=== PATIENT | male | born 1935 | race Caucasian/White ===

== ENCOUNTER 2017-01-16 00:40 | Inpatient (IN) | payer MEDICARE, OTHER ==
[2017-01-16] VITALS (8 sets, daily range): BP systolic 111–153; BP diastolic 55–81
[~2017-01-16] VITALS: Ht 182.9 cm; Wt 73.3 kg
[2017-01-16] MEDS ORDERED: IPRATROPIUM BROM 0.5 MG/2.5ML INH SOL NEB ONE (01:00)
[2017-01-16] MEDS ORDERED: methylPREDNISolone SOD SUCC 125 MG/2 ML VL IV ONE (01:00)
[2017-01-16] MEDS ORDERED: ALBUTEROL SULF 2.5 MG/0.5ML(0.5%) NEB SOLN NEB ONE (01:00)
[2017-01-16 01:28] LABS: Hematocrit 44.4 % (41.0-53.0); Hemoglobin 14.5 g/dL (13.5-17.5); Mean Corpuscular Hemoglobin 27.6 pg (28.0-32.0); Mean Corpuscular Hgb Conc. 32.7 g/dL (32.0-36.0); Mean Corpuscular Volume 84.4 fL (80.0-100.0); Mean Platelet Volume 8.2 fL (7.4-10.4); Platelet Count (auto) 208 10^3/uL (140-450); Red Cell Distribution Width 14.7 % (11.6-16.0); SUSPECT VIEW TRANSMISSION; White Blood Cell 28.4 10^3/uL (4.4-10.8)
[2017-01-16 01:28] LABS: Urine Bilirubin Negative (Negative); Urine Color Yellow (Yellow); Urine Ketone Negative (Negative); Urine Nitrite Negative (Negative); Urine RBC 363 /hpf (0 - 3); Urine Urobilinogen Normal (Negative); Urine pH 6.5 (5.0-8.0)
[2017-01-16 01:30] LABS: Urine Blood 2+ /uL (Negative); Urine Glucose 1+ mg/dL (Normal)
[2017-01-16 01:33] LABS: Metamyelocytes % 0; Myelocytes % 0; Promyelocytes % 0; Reactive Lymphocytes 0
[2017-01-16 01:34] LABS: Albumin 2.9 g/dL (3.4-5.0); BUN/Creatinine Ratio 46.1; Calcium 8.3 mg/dL (8.5-10.1); Magnesium 2.3 mg/dL (1.6-2.6); Potassium 4.8 mmol/L (3.5-5.1)
[2017-01-16 01:41] LABS: INR 1.01 (0.9-1.15); Partial Thromboplastin Time 20.3 sec (22.64-33.71); Prothrombin Time 10.9 sec (9.37-12.3)
[2017-01-16 02:10] LABS: Hypersegmented Neutrophils Present; Platelet Estimate Adequate
[2017-01-16 02:23] LABS: B-Type Natriuretic Peptide 92.4 pg/mL (0-100); Temperature: 21.4 C (20.0-25.0)
[2017-01-16] MEDS ORDERED: SODIUM CHLORIDE 0.9% 1,000 ML IV ONE (03:00)
[2017-01-16] MEDS ORDERED: PIPERACILLIN-TAZO 4.5GM 100 ML IV ONE (03:00)
[2017-01-16] MEDS ORDERED: IOHEXOL 350 MG/ML 100ML IJ ONE (03:31)
[2017-01-16] MEDS ORDERED: NITROGLYCERIN 0.4 MG SL TAB SL PRN (06:30)
[2017-01-16] MEDS ORDERED: VANCOMYCIN PER PHARMACY 0 MG IV SCH (06:30)
[2017-01-16] MEDS ORDERED: ONDANSETRON HCL 4 MG/2 ML VIAL IV PRN (06:30)
[2017-01-16] MEDS ORDERED: ACETAMINOPHEN 325 MG TAB PO PRN (06:30)
[2017-01-16] MEDS ORDERED: MORPHINE SULF INJ 2 MG/ML SYRINGE 1ML IV PRN (06:30)
[2017-01-16] MEDS: SODIUM CHLORIDE 0.9% 1,000 ML IV SCH ×2 (06:34→23:00)
[2017-01-16] MEDS ORDERED: WARF4TAB33 PO (08:25)
[2017-01-16] MEDS ORDERED: ATOR20TA PO (08:25)
[2017-01-16] MEDS ORDERED: AMPI500C59 PO (08:25)
[2017-01-16] MEDS ORDERED: CYAN500L3 PO (08:25)
[2017-01-16] MEDS ORDERED: CEPH500C PO (08:25)
[2017-01-16] MEDS ORDERED: ALBUAER3 IN (08:25)
[2017-01-16] MEDS ORDERED: FOLI1TAB6 PO (08:25)
[2017-01-16] MEDS ORDERED: METO-169 PO (08:25)
[2017-01-16] MEDS ORDERED: AML5T PO (08:25)
[2017-01-16] MEDS ORDERED: FLUT250M2 INH (08:25)
[2017-01-16] MEDS ORDERED: LEVO500T3 PO (08:25)
[2017-01-16] MEDS ORDERED: LISI-646 PO (08:25)
[2017-01-16] MEDS ORDERED: ZOLP12.52 PO (08:25)
[2017-01-16 08:32] LABS: INR 1.06 (0.9-1.15); Partial Thromboplastin Time 25.7 sec (22.64-33.71); Prothrombin Time 11.4 sec (9.37-12.3)
[2017-01-16] MEDS: VANCOMYCIN 1,250 MG in D5W 5% 250 ML IV SCH ×2 (09:00→21:56)
[2017-01-16] MEDS: amLODIPine BESYLATE 5 MG TAB PO SCH (10:00)
[2017-01-16] MEDS: methylPREDNISolone SOD SUCC 125 MG/2 ML VL IV SCH ×2 (11:18→21:50)
[2017-01-16] MEDS: FAMOTIDINE 20 MG TAB PO SCH ×2 (11:18→21:49)
[2017-01-16] MEDS: METOPROLOL TARTRATE 50 MG TAB PO SCH (11:18)
[2017-01-16] MEDS: PIPERACILLIN-TAZOB 3.375GM 100 ML IV SCH ×2 (13:02→17:36)
[2017-01-16] MEDS ORDERED: WARFARIN SODIUM 2.5 MG TAB PO ONE (17:00)
[2017-01-16] MEDS: ATORVASTATIN 20 MG TAB PO SCH (21:49)
[2017-01-17] VITALS: BP 156/78
[2017-01-17] MEDS: PIPERACILLIN-TAZOB 3.375GM 100 ML IV SCH ×5 (00:36→23:38)
[2017-01-17] MEDS: MORPHINE SULF INJ 2 MG/ML SYRINGE 1ML IV PRN (03:27)
[2017-01-17 04:00] VITALS: BP 157/80
[2017-01-17 05:38] LABS: Hematocrit 35.9 % (41.0-53.0); Hemoglobin 11.9 g/dL (13.5-17.5); Mean Corpuscular Hemoglobin 27.6 pg (28.0-32.0); Mean Corpuscular Hgb Conc. 33.2 g/dL (32.0-36.0); Mean Corpuscular Volume 83.2 fL (80.0-100.0); Platelet Count (auto) 152 10^3/uL (140-450); Red Cell Distribution Width 14.7 % (11.6-16.0); SUSPECT VIEW TRANSMISSION; White Blood Cell 19.2 10^3/uL (4.4-10.8)
[2017-01-17 05:43] LABS: Metamyelocytes % 0; Myelocytes % 0; Promyelocytes % 0; Reactive Lymphocytes 0
[2017-01-17 05:47] LABS: Albumin 2.1 g/dL (3.4-5.0); BUN/Creatinine Ratio 35.1; Bilirubin, Total 1.5 mg/dL (0.2-1.0); Calcium 7.4 mg/dL (8.5-10.1); Potassium 4.6 mmol/L (3.5-5.1); Total Protein 4.9 g/dL (6.4-8.2)
[2017-01-17] MEDS: ALBUTEROL SULF 2.5 MG/0.5ML(0.5%) NEB SOLN NEB PRN ×2 (05:52→10:10)
[2017-01-17] MEDS: IPRATROPIUM BROM 0.5 MG/2.5ML INH SOL NEB PRN ×2 (05:53→10:10)
[2017-01-17 06:51] LABS: Hypersegmented Neutrophils Present; Platelet Estimate Adequate; RBC Morphology Normal
[2017-01-17 07:32] LABS: INR 1.28 (0.9-1.15); Partial Thromboplastin Time 27.3 sec (22.64-33.71); Prothrombin Time 13.7 sec (9.37-12.3)
[2017-01-17 07:53] VITALS: BP 140/87
[2017-01-17] MEDS: VANCOMYCIN 1,250 MG in D5W 5% 250 ML IV SCH ×2 (09:19→20:42)
[2017-01-17] MEDS: amLODIPine BESYLATE 5 MG TAB PO SCH (10:37)
[2017-01-17] MEDS: methylPREDNISolone SOD SUCC 125 MG/2 ML VL IV SCH ×3 (10:38→23:39)
[2017-01-17] MEDS: FAMOTIDINE 20 MG TAB PO SCH ×2 (10:38→22:07)
[2017-01-17] MEDS: METOPROLOL TARTRATE 50 MG TAB PO SCH (10:38)
[2017-01-17 12:00] VITALS: BP 145/81
[2017-01-17] MEDS: METOPROLOL SUCCINATE XL 50 MG TAB PO SCH (12:00)
[2017-01-17] MEDS: SODIUM CHLORIDE 0.9% 1,000 ML IV SCH (12:24)
[2017-01-17] MEDS: IPRATROPIUM BROM 0.5 MG/2.5ML INH SOL NEB SCH ×2 (14:20→21:55)
[2017-01-17] MEDS: ALBUTEROL SULF 2.5 MG/0.5ML(0.5%) NEB SOLN NEB SCH ×2 (14:21→19:31)
[2017-01-17 16:00] VITALS: BP 121/59
[2017-01-17] MEDS ORDERED: WARFARIN SODIUM 2.5 MG TAB PO ONE (17:00)
[2017-01-17 20:01] VITALS: BP 151/77
[2017-01-17] MEDS: HYDROcodone-ACET 5/325MG TAB PO PRN (20:42)
[2017-01-17] MEDS: ATORVASTATIN 20 MG TAB PO SCH (22:06)
[2017-01-18] MEDS: IPRATROPIUM BROM 0.5 MG/2.5ML INH SOL NEB SCH ×5 (00:29→23:55)
[2017-01-18] MEDS: ALBUTEROL SULF 2.5 MG/0.5ML(0.5%) NEB SOLN NEB SCH ×5 (00:29→23:55)
[2017-01-18 04:03] VITALS: BP 132/79
[2017-01-18] MEDS: PIPERACILLIN-TAZOB 3.375GM 100 ML IV SCH ×4 (05:30→23:51)
[2017-01-18] MEDS: methylPREDNISolone SOD SUCC 125 MG/2 ML VL IV SCH ×4 (05:30→23:51)
[2017-01-18 06:28] LABS: Hematocrit 39.5 % (41.0-53.0); Mean Corpuscular Hemoglobin 27.5 pg (28.0-32.0); Mean Corpuscular Volume 83.5 fL (80.0-100.0); Mean Platelet Volume 8.5 fL (7.4-10.4); Platelet Count (auto) 141 10^3/uL (140-450); Red Cell Distribution Width 14.5 % (11.6-16.0); SUSPECT VIEW TRANSMISSION; White Blood Cell 19.3 10^3/uL (4.4-10.8)
[2017-01-18 06:36] LABS: Metamyelocytes % 0; Myelocytes % 0; Promyelocytes % 0; Reactive Lymphocytes 0
[2017-01-18 06:46] LABS: Partial Thromboplastin Time 27.2 sec (22.64-33.71)
[2017-01-18 06:48] LABS: BUN/Creatinine Ratio 37.9; Calcium 7.6 mg/dL (8.5-10.1); INR 1.55 (0.9-1.15); Potassium 3.9 mmol/L (3.5-5.1); Prothrombin Time 16.7 sec (9.37-12.3)
[2017-01-18 08:00] VITALS: BP 148/79
[2017-01-18 08:43] LABS: Platelet Estimate Adequate; RBC Morphology Normal
[2017-01-18] MEDS: VANCOMYCIN 1,250 MG in D5W 5% 250 ML IV SCH (09:30)
[2017-01-18] MEDS: FAMOTIDINE 20 MG TAB PO SCH ×2 (09:50→21:50)
[2017-01-18] MEDS: amLODIPine BESYLATE 5 MG TAB PO SCH (09:51)
[2017-01-18] MEDS: METOPROLOL SUCCINATE XL 50 MG TAB PO SCH (09:51)
[2017-01-18 12:00] VITALS: BP 141/68
[2017-01-18] MEDS ORDERED: DEXTROSE (50%) 50ML SYRG IV PRN (12:00)
[2017-01-18] MEDS: SODIUM CHLORIDE 0.9% 1,000 ML IV SCH (12:12)
[2017-01-18 16:00] VITALS: BP 148/87
[2017-01-18] MEDS: VANCOMYCIN 1GM/250ML D5W 250 ML IV SCH (16:55)
[2017-01-18] MEDS: InsuLIN REG 1unit/0.01ml Soln (100units/ml) SC SCH ×2 (16:59→21:53)
[2017-01-18] MEDS ORDERED: WARFARIN SODIUM 5 MG TAB PO ONE (17:00)
[2017-01-18] MEDS: ACCU-CHEK COMFORT CURVE STRIP VI SCH ×2 (17:03→21:51)
[2017-01-18 20:00] VITALS: BP 111/79
[2017-01-18] MEDS: ATORVASTATIN 20 MG TAB PO SCH (21:50)
[2017-01-18] MEDS: HYDROcodone-ACET 5/325MG TAB PO PRN (22:00)
[2017-01-18 23:52] VITALS: BP 121/72
[2017-01-19] MEDS: VANCOMYCIN 1GM/250ML D5W 250 ML IV SCH ×2 (01:56→09:34)
[2017-01-19 04:00] VITALS: BP 142/63
[2017-01-19 05:36] LABS: Basophils # (auto) 0 uL; Eosinophils # (auto) 0 uL; Hematocrit 41.2 % (41.0-53.0); Hemoglobin 13.6 g/dL (13.5-17.5); Lymphocytes # (auto) 0.4 uL; Lymphocytes % (auto) 1.5 % (10.0-50.0); Mean Corpuscular Hemoglobin 27.7 pg (28.0-32.0); Mean Corpuscular Volume 83.9 fL (80.0-100.0); Monocytes # (auto) 0.1 uL; Monocytes % (auto) 0.3 % (0.0-12.0); Neutrophils # (auto) 22.9 uL; Neutrophils % (auto) 98.2 % (37.0-80.0); Platelet Count (auto) 160 10^3/uL (140-450); Red Cell Distribution Width 14.8 % (11.6-16.0); SUSPECT VIEW TRANSMISSION; White Blood Cell 23.4 10^3/uL (4.4-10.8)
[2017-01-19] MEDS: PIPERACILLIN-TAZOB 3.375GM 100 ML IV SCH ×4 (06:08→23:25)
[2017-01-19] MEDS: methylPREDNISolone SOD SUCC 125 MG/2 ML VL IV SCH ×4 (06:08→23:26)
[2017-01-19] MEDS: IPRATROPIUM BROM 0.5 MG/2.5ML INH SOL NEB SCH ×3 (06:10→18:27)
[2017-01-19] MEDS: ALBUTEROL SULF 2.5 MG/0.5ML(0.5%) NEB SOLN NEB SCH ×3 (06:10→18:27)
[2017-01-19 06:11] LABS: BUN/Creatinine Ratio 32.5; Potassium 4.5 mmol/L (3.5-5.1)
[2017-01-19 06:23] LABS: INR 2.79 (0.9-1.15); Prothrombin Time 30.1 sec (9.37-12.3)
[2017-01-19] MEDS: ACCU-CHEK COMFORT CURVE STRIP VI SCH ×4 (06:26→21:20)
[2017-01-19] MEDS: InsuLIN REG 1unit/0.01ml Soln (100units/ml) SC SCH ×4 (06:28→22:19)
[2017-01-19 07:54] VITALS: BP 129/72
[2017-01-19] MEDS: FAMOTIDINE 20 MG TAB PO SCH ×2 (09:35→21:20)
[2017-01-19] MEDS: amLODIPine BESYLATE 5 MG TAB PO SCH (09:35)
[2017-01-19] MEDS: METOPROLOL SUCCINATE XL 50 MG TAB PO SCH (09:35)
[2017-01-19 09:51] VITALS: BP 140/74
[2017-01-19 12:00] VITALS: BP 138/78
[2017-01-19] MEDS: SODIUM CHLORIDE 0.9% 1,000 ML IV SCH (12:01)
[2017-01-19] MEDS: HYDROcodone-ACET 5/325MG TAB PO PRN ×2 (13:08→19:03)
[2017-01-19 16:01] VITALS: BP 128/63
[2017-01-19 20:00] VITALS: BP 122/55
[2017-01-19] MEDS: ATORVASTATIN 20 MG TAB PO SCH (21:20)
[2017-01-19] MEDS: VANCOMYCIN 1,250 MG in D5W 5% 250 ML IV SCH (22:01)
[2017-01-20] VITALS: BP 136/74
[2017-01-20 04:00] VITALS: BP 137/84
[2017-01-20] MEDS: PIPERACILLIN-TAZOB 3.375GM 100 ML IV SCH ×3 (05:22→18:00)
[2017-01-20] MEDS: methylPREDNISolone SOD SUCC 125 MG/2 ML VL IV SCH ×3 (05:23→18:20)
[2017-01-20] MEDS: ALBUTEROL SULF 2.5 MG/0.5ML(0.5%) NEB SOLN NEB SCH ×3 (05:41→11:26)
[2017-01-20] MEDS: IPRATROPIUM BROM 0.5 MG/2.5ML INH SOL NEB SCH ×3 (05:41→11:26)
[2017-01-20] MEDS: ACCU-CHEK COMFORT CURVE STRIP VI SCH ×3 (06:01→17:23)
[2017-01-20 06:06] LABS: Hematocrit 40.6 % (41.0-53.0); Hemoglobin 13.8 g/dL (13.5-17.5); Mean Corpuscular Hemoglobin 28.7 pg (28.0-32.0); Mean Corpuscular Hgb Conc. 34.1 g/dL (32.0-36.0); Mean Corpuscular Volume 84.3 fL (80.0-100.0); Mean Platelet Volume 8.2 fL (7.4-10.4); Platelet Count (auto) 155 10^3/uL (140-450); Red Cell Distribution Width 14.1 % (11.6-16.0); SUSPECT VIEW TRANSMISSION; White Blood Cell 23.2 10^3/uL (4.4-10.8)
[2017-01-20 06:16] LABS: Metamyelocytes % 0; Myelocytes % 0; Promyelocytes % 0; Reactive Lymphocytes 0
[2017-01-20] MEDS: InsuLIN REG 1unit/0.01ml Soln (100units/ml) SC SCH ×3 (06:19→18:20)
[2017-01-20 06:27] LABS: Potassium 3.5 mmol/L (3.5-5.1)
[2017-01-20 06:33] LABS: Partial Thromboplastin Time 32.5 sec (22.64-33.71)
[2017-01-20 06:38] LABS: Calcium 7.6 mg/dL (8.5-10.1); Magnesium 2.3 mg/dL (1.6-2.6); Phosphorus 1.7 mg/dL (2.5-4.90)
[2017-01-20 06:43] LABS: INR 2.72 (0.9-1.15); Prothrombin Time 29.4 sec (9.37-12.3)
[2017-01-20 07:30] LABS: Platelet Estimate Adequate
[2017-01-20 07:44] VITALS: BP 137/84
[2017-01-20] MEDS: VANCOMYCIN 1,250 MG in D5W 5% 250 ML IV SCH (09:44)
[2017-01-20] MEDS: METOPROLOL SUCCINATE XL 50 MG TAB PO SCH (09:45)
[2017-01-20] MEDS: FAMOTIDINE 20 MG TAB PO SCH (09:45)
[2017-01-20] MEDS: amLODIPine BESYLATE 5 MG TAB PO SCH (09:45)
[2017-01-20] MEDS: HYDROcodone-ACET 5/325MG TAB PO PRN (11:00)
[2017-01-20 12:00] VITALS: BP 136/83
[2017-01-20] MEDS: SODIUM CHLORIDE 0.9% 1,000 ML IV SCH (12:12)
[2017-01-20 13:14] VITALS: BP 136/83
[2017-01-20] MEDS: MORPHINE SULF INJ 2 MG/ML SYRINGE 1ML IV PRN (15:11)
[2017-01-20 16:00] VITALS: BP 126/63
== END 2017-01-20 18:00 | disposition hospice, home (50) | DRG 871 ==
LOC: ER 00:40 → EDBD 00:40 → EDSEX 00:40 → TELE 00:41 → DOU IN ICU 08:55 → ICU CENTRL 08:55
PROVIDERS: ADMIT Nurse Practitioner; ATTEND Internal Medicine
PROC: 5A09357 Assistance with Respiratory Ventilation, Less than 24 Consecutive Hours, Continuous Positive Airway Pressure (ICD-10-PCS; principal; 2017-01-16)
DX: A41.9 Sepsis, unspecified organism (principal); J18.9 Pneumonia, unspecified organism; J96.01 Acute respiratory failure with hypoxia; J44.0 Chronic obstructive pulmonary disease with (acute) lower respiratory infection; J44.1 Chronic obstructive pulmonary disease with (acute) exacerbation; S32.029A Unspecified fracture of second lumbar vertebra, initial encounter for closed fracture; I50.9 Heart failure, unspecified; I11.0 Hypertensive heart disease with heart failure; E78.5 Hyperlipidemia, unspecified; Z66 Do not resuscitate; T38.0X5A Adverse effect of glucocorticoids and synthetic analogues, initial encounter; Z51.5 Encounter for palliative care; I25.10 Atherosclerotic heart disease of native coronary artery without angina pectoris; R31.9 Hematuria, unspecified; X58.XXXA Exposure to other specified factors, initial encounter; Y93.89 Activity, other specified; Y92.89 Other specified places as the place of occurrence of the external cause; Z80.3 Family history of malignant neoplasm of breast; Z80.8 Family history of malignant neoplasm of other organs or systems; Z85.118 Personal history of other malignant neoplasm of bronchus and lung; Z86.718 Personal history of other venous thrombosis and embolism; Z87.891 Personal history of nicotine dependence; Z90.49 Acquired absence of other specified parts of digestive tract; Z99.81 Dependence on supplemental oxygen; Z79.899 Other long term (current) drug therapy
CPT/HCPCS: 36415; 36600; 51702; 71010; 71260; 80048; 80053; 80061; 80202; 81001; 82805; 82962; 83605; 83735; 83880; 84100; 84484; 85007; 85025; 85027; 85610; 85730; 87040; 87070; 87077; 87081; 87186; 87205; 93005; 93970; 94640; 94660; 96374; 96375; 99291; J1815; J2543; J7060